=== PATIENT | female | born 1980 | race Caucasian/White ===

== ENCOUNTER 2018-07-23 05:42 | Observation (INO) | payer OTHER ==
[~2018-07-23] VITALS: Ht 165.1 cm; Wt 81.5 kg
[2018-07-23] VITALS (21 sets, daily range): BP systolic 93–126; BP diastolic 50–74; PULSE 66–96; RESP 10–20; Ht 165.1 cm; Wt 81.5 kg
--- NOTE | 2018-07-23 06:43 | PREAC ---
Date/Time of Note Date/Time of Note DATE: 07/23/18 TIME: 06:42 Anesthesia Eval and Record Evaluation Time Pre-Procedure Interview DATE: 07/23/18 TIME: 06:42 Age 38 Sex female NPO: 8 hrs Preoperative diagnosis Lumbar DDD Planned procedure L4-5, L5-S1 Microdiscectomy Past Medical History Past Medical History: None Surgery & Anesthesia Issues No known issue Meds Anticoagulation: No Beta Aayush within 24 hr: No Reason Beta Aayush not given: Pt. not on B-Aayush No Active Prescriptions or Reported Meds Meds reviewed: Yes Allergies Coded Allergies: Sulfa (Sulfonamide Antibiotics) (Verified Allergy, Unknown, 07/23/18) Allergies Reviewed: Yes Labs/Studies Labs Reviewed: Reviewed by anesthesiologist test: Negative Studies: ECG Pre-procedure Exam Last vitals Vital Signs Date Temp Pulse Resp B/P (MAP) Pulse Ox O2 O2 Flow FiO2 Time Delivery Rate 07/23/18 97.4 66 18 107/72 100 Room Air 06:28 (84) Airway: Adequate mouth opening, Adequate thyromental dist Mallampati: Mallampati II Teeth: Normal Lung: Normal Heart: Normal ASA Physical Status ASA physical status: 2 Emergency: None Planned Anesthetic General/MAC: ETT Pre-operative Attestations Prior to commencing anesthesia and surgery, the patient was re-evaluated, there was verification of: *The patient's identity *The results of appropriate recent lab work and preoperative vital signs *The above evaluation not changing prior to induction *Anesthetic plan, risk benefits, alternative and complications discussed with patient/family; questions answered; patient/family understands, accepts and wishes to proceed. SHUBHAM GALICIA Jul 23, 2018 06:43
[2018-07-23] MEDS ORDERED: BUPIVACAINE 0.5%/EPI (SDV) 30 ML INJ ONE (06:51)
[2018-07-23] MEDS ORDERED: SURGIFOAM POWDER 1 GM KIT ONE (06:51)
[2018-07-23] MEDS ORDERED: GELATIN SIZE 100 SPONGE ONE (06:51)
[2018-07-23] MEDS ORDERED: BUPIVACAINE 0.25% (MPF) 30 ML INJ ONE (06:51)
[2018-07-23] MEDS ORDERED: THROMBIN 5000 UNIT VIAL ONE (06:52)
[2018-07-23] MEDS ORDERED: POLYMYXIN/BACITRACIN 1L IRRIG ONE (06:52)
[2018-07-23] MEDS ORDERED: HEPARIN 1000 UNITS/ML 10 ML INJ ONE (06:52)
[2018-07-23] MEDS ORDERED: CA CHLORIDE 10% 10 ML SYRINGE ONE ×2 (06:54→08:27)
[2018-07-23] MEDS ORDERED: D5W-0.45 NACL + KCL 20 MEQ 1,000 ML IV SCH (06:55)
--- NOTE | 2018-07-23 06:55 | HPN ---
Date/Time of Note Date/Time of Note DATE: 07/23/18 TIME: 06:55 Interval H&P Admission Note Pt. seen H&P reviewed: No system changes TIFFANY TUCKER PA-C Jul 23, 2018 06:55
[2018-07-23] MEDS ORDERED: ACETAMINOPHEN 325 MG TAB PO PRN (07:00)
[2018-07-23] MEDS ORDERED: CARISOPRODOL 350 MG TAB PO PRN (07:00)
[2018-07-23] MEDS ORDERED: HYDROmorphONE 1 MG/5 ML IV SYRINGE IV PRN ×3 (07:00)
[2018-07-23] MEDS ORDERED: ONDANSETRON 4 MG INJ IV PRN ×3 (07:00→13:30)
[2018-07-23] MEDS ORDERED: BISACODYL 10 MG SUPP PR PRN (07:00)
[2018-07-23] MEDS ORDERED: FENTAnyl 50 MCG/ML VIAL IV PRN ×2 (07:00)
[2018-07-23] MEDS ORDERED: CEPASTAT LOZENGE MT PRN (07:00)
[2018-07-23] MEDS ORDERED: MEPERIDINE 25 MG INJ IV PRN (07:00)
[2018-07-23] MEDS ORDERED: HYDROmorphONE 0.5 MG/0.5 ML SYG IV PRN (07:00)
[2018-07-23] MEDS ORDERED: HYDROmorphONE 0.2 MG/ML PCA IV SCH (07:00)
[2018-07-23] MEDS ORDERED: ALBUTEROL 0.083% (NEB) 2.5 MG/3 ML AMP HHN PRN (07:00)
[2018-07-23] MEDS ORDERED: METOCLOPRAMIDE 10 MG INJ IV PRN (07:00)
[2018-07-23] MEDS ORDERED: AL HYDROX/MG HYDROX/SIMETH 30 ML CUP PO PRN (07:00)
[2018-07-23] MEDS ORDERED: DIPHENHYDRAMINE 25 MG CAP PO PRN (07:00)
[2018-07-23] MEDS ORDERED: DIPHENHYDRAMINE 50 MG INJ IV PRN ×2 (07:00)
[2018-07-23] MEDS ORDERED: NALOXONE (0.4 MG/ML) INJ IV PRN ×2 (07:00→14:00)
[2018-07-23] MEDS ORDERED: HYDROCODONE/APAP (10/325) TAB PO PRN ×2 (07:00)
[2018-07-23] MEDS ORDERED: FENTAnyl 50 MCG/ML VIAL ONE (07:12)
[2018-07-23] MEDS: CEFAZOLIN 1 GM/50 ML (PMX) 50 ML IVPB SCH ×3 (07:29→23:01)
[2018-07-23] MEDS ORDERED: PROPOFOL 20 ML ONE (08:27)
[2018-07-23] MEDS ORDERED: SUCCINYLCHOLINE CHLORIDE 100 MG/5 ML SYG IV ONE (08:27)
[2018-07-23] MEDS ORDERED: LIDOCAINE 100 MG SYRINGE ONE (08:27)
[2018-07-23] MEDS ORDERED: SUGAMMADEX SODIUM 200 MG/2 ML VIAL IV ONE (08:27)
[2018-07-23] MEDS ORDERED: CEFAZOLIN 1 GM INJ ONE (08:27)
[2018-07-23] MEDS ORDERED: ROCURONIUM 50 MG INJ ONE (08:27)
--- NOTE | 2018-07-23 08:55 | SIPON ---
Date/Time of Note Date/Time of Note DATE: 07/23/18 TIME: 08:54 Operative Report Preoperative Diagnosis Left lumbosacral disc herniation Postoperative Diagnosis Left lumbosacral disc herniation Operation/Procedure Performed Left lumbosacral discectomy Surgeon see signature line assistant floor covering printer Irlanda Montoya PA-C Anesthesia: general Estimated blood loss: 10 - 50 ml's Transfusion Required none Specimen L5-S1 disc Grafts/Implants none Complications none BASSAM IBRAHIM MD Jul 23, 2018 08:55
--- NOTE | 2018-07-23 08:57 | NUR ---
RECEIVED RESPONSIVE BREARTHING WELL WITH OXYGEN MASK ON, CRYING IN PAIN. MOVING BOTH LEGS/FEET WELL TO COMMANDS, GOOD PEDAL PULSES. LOWER BACK INCISION CLEAR WITH DERMABOND INTACT.
--- NOTE | 2018-07-23 09:12 | NUR ---
C/O FEELING SICK AND TENSE AFTER DILAUDID GIVEN, NO RASHES OER HIVES, NO SWELLING OF MOUTH OR THROAT. WILL DOCUMENT IN PHARMACY PATIENT HAS ADVERSE REACTION TO DILAUDID.
--- NOTE | 2018-07-23 09:13 | NUR ---
DR GALICIA MADE AWARE OF PATIENT'S COMPLAIN AFTER DILAUDID GIVEN AND BENADRYL GIVEN. WILL COME TO SEE PATIENT. BREATHING WITH EASE, NO RASHES NO SWELLING OF THROAT.
--- NOTE | 2018-07-23 09:15 | NUR ---
DR BISHOP'S OFFICE ( JACEK ) MADE AWARE OF CONSULT.
--- NOTE | 2018-07-23 09:24 | NUR ---
DR GALICIA AT BEDSIDE AND EXAMINED AND SPOKE TO PATIENT, REASSURED HER. CALM AT THIS TIME. MADE AWARE NO DILAUDID WILL BE GIVEN.
--- NOTE | 2018-07-23 09:27 | NUR ---
DR IBRAHIM MADE AWARE OF PATIENT'S REACTION TO DILAUDID, ORDERED TO DISCONTINUE GUNNER MATE DILAUDID.
--- NOTE | 2018-07-23 10:00 | NUR ---
FAMILY(GARETT) UPDATED ON STATUS AND MADE AWARE WERE STILL WAITING FOR BED ASSIGNMENT.
--- NOTE | 2018-07-23 10:40 | NUR ---
C/O OF DISCOMFORT ON LEFT HAND IV SITE, NO SWELLING OR REDNESS WITH GOOD BLOOD RETURN, CONVERTED TO HEPLOCK. NEW IV ACCESS ON LEFT AC #22 STARTED BY ABDIRAHMAN HUBBARD, PATIENT STAED IT FEELS MUCH BETTER. RECEIVING STEVIE MORENO. GARETT, PATIENT'S FAMILY INFORMED OF ROOM ASSIGNED, WILL WAIT IN THE ROOM.
--- NOTE | 2018-07-23 10:50 | NUR ---
AWAKE AND ALERT, MINIMAL PAIN, TOLERABLE. TRANSFERRED TO ROOM IN STABLE CONDITION.
--- NOTE | 2018-07-23 11:51 | PAC ---
Date/Time of Note Date/Time of Note DATE: 07/23/18 TIME: 11:51 Post-Anesthesia Notes Post-Anesthesia Note Last documented vital signs Vital Signs Date Temp Pulse Resp B/P (MAP) Pulse Ox O2 O2 Flow FiO2 Time Delivery Rate 07/23/18 78 10 119/70 100 Nasal 2.0 10:01 (86) Cannula 07/23/18 98.7 09:01 Activity: WNL Respiratory function: WNL Cardiovascular function: WNL Mental status: Baseline Pain reasonably controlled: Yes Hydration appropriate: Yes Nausea/Vomiting absent: Yes SHUBHAM GALICIA Jul 23, 2018 11:51
--- NOTE | 2018-07-23 13:03 | OPR ---
DATE OF OPERATION: 07/23/2018 PREOPERATIVE DIAGNOSIS: L5 to S1 disk extrusion with radiculopathy. POSTOPERATIVE DIAGNOSIS: L5 to S1 disk extrusion with radiculopathy. OPERATION PERFORMED: 1. Left L5 to S1 hemilaminotomy, partial medial facetectomy, foraminotomy. 2. Left L5 to S1 lumbar microdiskectomy. 3. Use of operative microscope. 4. Lateral localizing film x2. 5. Intraoperative neuromonitoring. PRIMARY SURGEON: Jorge Luis Borrego MD FLIGHT ENGINEER INSPECTOR: Irlanda Montoya PA-C NEED FOR MEDICAL SALES ASSOCIATE: During this spinal surgical procedure, my respiratory assistant was used to retract and protect the spinal nerves and dural sac. My respiratory assistant also employed the suction catheters to ev acuate blood from the surgical field to improve visualization of the neural structures. The assistan t was medically necessary to facilitate the completion of the surgery in a safe and expeditious [facility] r. [facility] regulations, as well as hospital bylaws, preclude the use of non-licensed [facility] care personnel, such as operating room technicians, to perform these functions. FINDINGS: Neuromonitoring at the start of the case revealed left L5 amplitude down 30%, left S1 down 40%. At the end of the case, nerve signals returned to normal. The patient had 2 large extruded fr agments at the L5-S1 level causing significant nerve root compromise. ESTIMATED BLOOD LOSS: 20 mL. DRAINS: None. SPECIMENS: L5 to S1 disk. COMPLICATIONS OF PROCEDURES: None. ANESTHESIOLOGIST: Asael Robbins MD TYPE OF ANESTHESIA: General. INDICATIONS FOR PROCEDURE: This is a 38-year-old female with lumbar radiculopathy that had large ext ruded fragment at L5 to S1 causing S1 nerve root compression. She failed nonoperative measures; ther efore, I recommended that she undergo the above procedure. Preoperatively, we discussed risks, benef its, alternatives. She understood and wished to proceed. DESCRIPTION OF PROCEDURE IN DETAIL: The patient was identified in the preoperative holding area, giv en Ancef antibiotic, taken to the operating room, where she was successfully placed under general ane sthesia. Her motor intraoperative neuromonitoring was performed by Dr. Leach from 6:40 until 8:4 5 to include SSEP, MEP and EMG performed by Rivono. The patient was placed in the operativ e table in prone position over a Lennox frame. All bony prominences are well padded. The back was t hen prepped and draped in usual sterile fashion. Spinal needles were placed and lateral localizing f ilm obtained to confirm the correct levels. Once this was confirmed, I injected the skin, subcutaneo us tissue with Marcaine and epinephrine. Incision was then made over the L5 to S1 level. Incision w as taken down to dorsal fascia, which was incised with Bovie cautery. I then subperiosteally dissect ed the left L5 lamina. Xi retractor was placed. Kerrison was placed under the L5 lamina and rep eat lateral films obtained to confirm the correct levels. Once this was confirmed, microscope was br ought in and left-sided hemilaminotomy, partial medial facetectomy and foraminotomy were then perform ed. Ligamentum flavum was then sharply dissected. I then identified the S1 nerve root which I retra cted medially. My respiratory assistant protected this and I encountered a large extruded fragment superior to t he disk space, which I was able to remove in 1 large fragment. I then examined the area and there we re no longer any superiorly extruded fragments. I then looked at the level of the disk space and the re was another extruded fragment there which I was able to remove. This was done without making any annulotomy. I then identified the hole in the annulus and I placed a small pituitary through there t o see if there are any loose fragments. Once this was done, I irrigated the wound and the disk space . A Valsalva maneuver was performed and there was no leak of CSF. All nerve signals returned to nor mal. Hemostasis was achieved. PPP and thrombin were injected over the dura for hemostatic purposes. Nerve signals were normal. I then proceeded to close the wound in layers after removing the retrac tors and I closed the fascia with #1 Vicryl stitch. I then injected plain Marcaine. I closed subcut aneous tissue with a 2-0 Vicryl stitch. A 4-0 Monocryl closure was then performed. Dermabond was th en applied. The patient was awakened from anesthesia and taken to the recovery room in stable condit ion. Lap, sponge and instrument counts were correct x2. There were no apparent complications during the procedure. The patient will be admitted to the [facility] for routine postoperative care to include pain co ntrol, neurovascular checks, antibiotics and physical therapy. Dictated By: JORGE LUIS BORREGO MD BB/NTS Conf#: [id number] DID#: [id number] CC: ZHANG BISHOP MD;*EndCC*
[2018-07-23] MEDS: OXYCODONE/ACETAMINOPHEN (5/325) TAB PO PRN ×3 (14:24→23:01)
--- NOTE | 2018-07-23 14:45 | NUR ---
PT Evaluation Therapy day number 1 Evaluation Start Time 15:45 Evaluation End Time 16:45 Evaluation Total Time 60 min Subjective Current complaint of pain Pain Scale NUMERIC Pain Intensity 5 (0-10) Patient Stated Goal for Pain Relief 0 (0-10) Pain Level Comment pain in back and L glute/LLE Supine to Sit Supervised Transfer Sit to Stand Ability Supervised Bed Mobility Sit to Supine Supervised Bed Transfer Ability Supervised Chair Transfer Ability Supervised Toileting Ability Supervised Additional Mobility Comments with and without AD Gait Assist Levels Supervised Assistive Devices Front Wheel Walker Ambulation Distance 100 feet Additional Gait Comments 20' with no AD supervised Static Sitting Balance Good Dynamic Sitting Balance Good Standing Static Balance Fair plus Dynamic Standing Balance Fair plus Safety Judgement Fair Activity Tolerance Fair Additional Equipment Present LS corset Post Treatment Pain Intensity 5 0-10 Total Minutes 60 Total Units 4 PT Technical Record Comment 38 yo female s/p lumbar microdiscectomy left L5-S1 secondary to disk extrusion with radiculopathy on 07/23/18. PMHx: None Precautions: LS Corset PRN PLOF: Pt reports living in a 1 story home with and two young children, family will be available to assist initially. Prior to 2.5 months ago, pt was I with all activities. Since 2.5 months ago, pt has been limited community ambulator, Ariadna with no AD, with pain sitting, bending, unable to dress herself or to work. S: Pt was found sitting in bed, anxious, and asking for assistance to use the restroom. RN had informed PT and cleared pt for activity. O: PT evaluation complete, pt assisted back to bed with bed alarm on, call light nearby, all needs met. Pt donned/doffed LS corset Ariadna and requested to continue wearing it in bed for improved comfort. Pt was visibly anxious at start of evaluation, performed log roll with supervision and stated that "her L leg felt like it was going to buckle." CGA with sit-stand and ambulated with FWW to the restroom. Pt was visibly more calm after bathroom use and a standing marching break with the FWW, pt states that she is more comfortable standing than sititng. Ambulated 100' supervised with FWW, then 20' supervised with no AD. No LOB, reciprocal steps, requires VCs for upright posture. Pt c/o numbness in LLE distal to ankle. Strength 4-/5 in LLE vs 4/5 on RLE. Pt points to L glute as source of pain in the piriformis region, offloads L side when sitting. Prioprioception and light touch screen intact RLE, mildly impaired LLE. Reviewed spinal precautions with pt. RN informed of pt progress, RN and pt informed that pt is safe to walk in her room supervised by staff with no AD. A: Pt is limited by pain in her back and LLE, impaired sensation in LLE, and anxiety that reduces pt tolerance for activity. When calm, pt requires supervision only, but requires more assistance when highly anxious. Pt would benefit from continued skilled inpatient to improve tolerance for activity and to reduce pain. P: QID until goals met. Defer discharge disposition to DME to be assessed as pt progresses. Pt would benefit from HHPT/OPPT when medically cleared by .
--- NOTE | 2018-07-23 16:16 | CONS ---
DATE OF ADMISSION: 07/23/2018 DATE OF CONSULTATION: 07/23/2018 TYPE OF CONSULTATION: Medical. Thank you, Dr. Borrego, for asking me to participate in medical management of this patient. REASON FOR CONSULTATION: Generalized anxiety disorder and history of panic attacks. HISTORY OF PRESENT ILLNESS: This 38-year-old female is now postop a lumbosacral spine surgery. The patient was injured at work and developed low back pain with radiation down the back of both legs, mo re on the left than the right. She failed medical management and underwent surgery today by Dr. Linda pérez. She had a left L5-S1 hemilaminectomy and partial medial facetectomy and foraminotomy, and a l eft L5-S1 lumbar microdiskectomy. The patient is awake and alert at this time. She does complain of some nausea after taking a [place]. She says that she has had trouble with Vicodin in the past causin g nausea and did not realize that the [place] was a similar medication. She does have some incisional back pain. She denies any chest pain or shortness of breath. She denies any history of hypertension , heart disease, diabetes mellitus. She is not on any chronic medications. PAST MEDICAL HISTORY: Remarkable for: 1. Anxiety disorder which is situational and associated with work. 2. History of panic attacks. PAST SURGICAL HISTORY: Urethral surgery at age 4, wisdom tooth extraction. FAMILY HISTORY: Father has diabetes. Mother is alive and well without medical problems. SOCIAL HISTORY: She is single. She does not smoke, does not drink alcohol. MEDICATIONS: Tramadol preoperatively as needed for pain. ALLERGIES: SHE IS ALLERGIC TO SULFA ANTIBIOTICS. PHYSICAL EXAMINATION: GENERAL: At this time reveals a well-developed female in no apparent distress. VITAL SIGNS: Temperature 97.4, pulse is 66, respirations 18, blood pressure 107/72, O2 saturation 10 0% on room air. HEENT: Head normocephalic. Eyes: Extraocular muscles intact. NOSE AND MOUTH: Normal. NECK: Supple. No neck vein distention. LUNGS: Clear to auscultation. HEART: Regular rhythm. No murmurs, gallops or rubs. ABDOMEN: Soft, nontender. EXTREMITIES: No peripheral edema. IMPRESSION: The patient is now postop a lumbosacral spine surgery for back pain and radiculopathy. She is having some nausea after taking a [place] for pain. I am going to switch her to Percocet to see if that is more tolerable. She has no other medical problems other than a history of an anxiety dis order related to work. She takes no chronic medication. I will manage her medical problems. PLAN: 1. Change hydrocodone to oxycodone. 2. Postop lumbosacral spine surgery protocol. 3. Check labs in the morning. 4. I will follow the patient along with you medically. Dictated By: DOMINGO CARROLL MD ND/NTS Conf#: [id number] DID#: [id number] CC: BASSAM BORREGO MD;*[facility]*
--- NOTE | 2018-07-23 19:56 | NUR ---
EOSS A and O x 4. Had some nausea without emesis, minimal po intake, Zofran and hoda zaynab given. Had pain, norco caused nausea and patient had negative reaction to dilaudid in PACU, so she was started on percocet 5/325mg which she reports is effective for her pain management. Patient wearing brace when out of bed, calls for assistance. Cleared by PT to walk in room without walker. Ancef administered as ordered. Hourly rounding performed, bed kept in low, locked position.
[2018-07-23] MEDS: DOCUSATE SODIUM 100 MG CAP PO SCH (20:46)
[2018-07-24] MEDS: OXYCODONE/ACETAMINOPHEN (5/325) TAB PO PRN ×3 (03:47→12:38)
[2018-07-24] MEDS ORDERED: PANTOPRAZOLE 40 MG INJ IV SCH (06:00)
[2018-07-24 07:26] VITALS: BP 111/54; PULSE 73; RESP 18
--- NOTE | 2018-07-24 07:50 | NUR ---
PT NOTE Therapy day number 2 Subjective Current complaint of pain Pain Scale NUMERIC Pain Intensity 5 (0-10) Patient Stated Goal for Pain Relief 0 (0-10) Pain Level Comment LLE radiating pain, pt reports decreased numbness since yesterday Exercise Assessment Label Bilat Lower Extremity Exercise Type Active ROM Additional Exercise Comments good return demo log rolling Transfer Training Start Time 07:50 Supine to Sit Independent Transfer Sit to Stand Ability Independent Bed Mobility Sit to Supine Independent Bed Transfer Ability Independent Chair Transfer Ability Independent Toileting Ability Independent Sitting Tolerance 1 min Additional Mobility Comments indep transfers and bed mob, good return demo sock don/doff w/ OT tools Transfer Training End Time 08:15 Total Transfer Training Time 25 min (8-127) Gait Training Start Time 08:15 Gait Assist Levels Independent Assistive Devices None Ambulation Distance 350 feet Additional Gait Comments no LOB with head turning/hand gestures, reciprocal, steady, incr post sway Gait Training End Time 08:28 Total Gait Training Treatment Time 13 min (8-127) Static Sitting Balance Good Dynamic Sitting Balance Good Standing Static Balance Good Dynamic Standing Balance Good Safety Judgement Good Activity Tolerance Good Additional Equipment Present LS corset donned independently Post Treatment Pain Intensity 7 0-10 Variance Documentation RN informed pt ready for next dose pain med Total Treament Time 38 min (8-127) Total Minutes 38 Total Units 3 PT Technical Record Comment PT NOTE S: Pt reports didn't sleep due to pain last night, decreased numbness in LLE since yesterday, c/o increased pain with bed ob/transfers/sitting, agreeable to PT. Cleared for PT per STEVIE Santana O: Pt received standing at sink performing oral hygeniene with no AD,no apparent distress. Performed transfer tr, bed mobility, and gait tr with no AD independent, pt with no LOB with talking/gesturing/head turning during gait. Provided sock aide, dynamite shooter and long handle sponge; pt able to doff/don sock mod I. Pt c/o increased LLE pain and spasms with transfers, decreased pain with standing. Pt left standing in room in no apparent distress. RN informed of pt request for pain med and updated re pt status. A: Pt ruiz tx well, will benefit from 3in1 commode for home use. P: will discuss possible DC from PT with supervising therapist due to PT goals met Addendum: 07/24/18 at 0911 by TRI MCNEILL PT Discussed POC with MACHINE BINDER STRIPPER, plan to discharge patient as all goals met. Patient may ambulate with nursing. Co-signed by Tri Mcneill PT, DPT
[2018-07-24] MEDS: DOCUSATE SODIUM 100 MG CAP PO SCH (08:53)
--- NOTE | 2018-07-24 08:57 | CONS ---
Assessment/Plan Assessment/Plan Hospital Course 1. Yessenia is now 1 day postop a lumbar sacral spine surgery. She is having some incisional back pain which has been relieved with Percocet. 2. She will continue physical therapy as tolerated. She could be discharged when cleared by Orth O and physical therapy. Result Diagram: 07/24/18 0426 07/24/18 0426 Results 24hrs Laboratory Tests Test 07/24/18 04:26 07/24/18 07:02 White Blood Count 8.4 Red Blood Count 3.98 L Hemoglobin 12.0 Hematocrit 36.4 L Mean Corpuscular Volume 91.5 Mean Corpuscular Hemoglobin 30.2 Mean Corpuscular Hemoglobin Concent 33.0 Red Cell Distribution Width 12.6 Platelet Count 328 Mean Platelet Volume 9.4 Immature Granulocytes % 0.400 Neutrophils % 51.9 Lymphocytes % 33.1 Monocytes % 9.2 Eosinophils % 4.6 Basophils % 0.8 Nucleated Red Blood Cells % 0.0 Immature Granulocytes # 0.030 Neutrophils # 4.4 Lymphocytes # 2.8 Monocytes # 0.8 Eosinophils # 0.4 Basophils # 0.1 Nucleated Red Blood Cells # 0.0 Sodium Level 143 Potassium Level 4.4 Chloride Level 102 Carbon Dioxide Level 30 Anion Gap 11 Blood Urea Nitrogen 5 L Creatinine 0.66 Est Glomerular Filtrat Rate mL/min > 60 Glucose Level 105 Calcium Level 8.8 Magnesium Level 1.9 Lab Scanned Report REFERENCE LAB Consultation Date/Type/Reason Admit Date/Time Jul 23, 2018 at 10:47 Initial Consult Date 24 HR Interval Summary Free Text/Dictation Yessenia is 1 day postop a lumbar sacral spine surgery. Yessenia is still having some incisional back pain; however, the Percocet is helping relieve the pain and she is able to tolerate it better than [place]. Constitutional: no complaints, improved Exam/Review of Systems Vital Signs Vitals Vital Signs Date Temp Pulse Resp B/P (MAP) Pulse Ox O2 O2 Flow FiO2 Time Delivery Rate 07/24/18 99.5 73 18 111/54 98 Room Air 07:26 (73) 07/23/18 2.0 10:01 Intake and Output 07/23/18 07/23/18 07/24/18 1515:00 23:00 07:00 IntakeIntake Total 1400 ml 1850 ml 350 ml OutputOutput Total 20 ml BalanceBalance 1380 ml 1850 ml 350 ml Exam Constitutional: alert, oriented Respiratory: clear to auscultation, normal air movement Cardiovascular: regular rate and rhythm Gastrointestinal: soft, non-tender Musculoskeletal: nl extremities to inspection Medications Medications Current Medications Docusate Sodium (Colace) 100 mg BID PO Last administered on 07/24/18at 08:53; Ad min Dose 100 MG; Start 07/23/18 at 21:00 Pantoprazole (Protonix Iv) 40 mg DAILY@06 IV Last administered on 07/24/18at 05:46; Admin Dose 40 MG; Start 07/24/18 at 06:00 Oxycodone/ Acetaminophen (Percocet (5/ 325)) 1 tab Q4H PRN PO MODERATE PAIN LEVEL 4-6 Last administered on 07/24/18at 08:53; Admin Dose 1 TAB; Start 07/23/18 at 13:30 Ondansetron HCl (Zofran Inj) 4 mg Q6H PRN IV NAUSEA AND/OR VOMITING Last administered on 07/23/18at 14:17; Admin Dose 4 MG; Start 07/23/18 at 13:30 Naloxone HCl (Narcan) 0.2 mg Q2M PRN IV DECREASED REPIRATORY RATE; Start 07/23/18 at 14:00 Date/Time of Note Date/Time of Note DATE: 07/24/18 TIME: 08:55 DOMINGO CARROLL MD Jul 24, 2018 08:57
--- NOTE | 2018-07-24 09:59 | NUR ---
Called Dr. Borrego's office to report medicines ordered yesterday were d/c when patient's status was changed from same day surgery to observation. Dr. Ruiz entered orders for some, but this morning patient is asking for muscle spasm medication. One of the medications d/c when patient status changed was for muscle spasms. Additionally, patient is reporting numbness in her left foot and "running" pain from left hip to calf. Denies intermittent claudication pain, has been wearing SCDs. Pulses equal in bilateral feet, both feet cool.
--- NOTE | 2018-07-24 11:12 | NUR ---
ANEUDY NOTES: PT IS A 38 YRS OLD FEMALE WITH ADMITTING DX OF LEFT L5-S1 HNP WITH DISC. MET WITH THE PT AT THE BEDSIDE. PRIOR TO THE ADMISSION, PT LIVED WITH HER IN [place]. PT HAD NO PREVIOUS DME. PT AGREED WITH FWW AND BSC. 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 S/W WITH [facility] AND FAXED ALL ORDER TO HER. AWAITING FOR A DECISION. WILL REMAIN AVAILABLE. STACI CADENA CM [id number] Addendum: 07/24/18 at 1116 by STACI NEGRON CM Amended: Links added.
--- NOTE | 2018-07-24 11:40 | NUR ---
called Dr. Borrego, reported patient complaint of left foot numbness that is new onset. Informed of d/c of medication when patient status changed from same day surgery to observation. He will see patient in 20 minutes and evaluate.
[2018-07-24 12:30] VITALS: BP 113/68; PULSE 74
--- NOTE | 2018-07-24 12:55 | DS ---
Date/Time of Note Date/Time of Note DATE: 07/24/18 TIME: 12:54 Discharge Summary Admission/Discharge Info Admit Date/Time Jul 23, 2018 at 10:47 Discharge Date/Time July 24 Patient Condition: Good Procedures Lumbar discectomy Hospital Course [facility] after undergoing the above procedure. By July 24 the patient was deemed stable for discharge with follow-up arranged with the undersigned Home Meds No Active Prescriptions or Reported Meds Primary Care Provider Not On Staff Doctor Pending Labs Laboratory Tests Test 07/24/18 04:26 07/24/18 07:02 White Blood Count 8.4 10^3/ul (4.8-10.8) Red Blood Count 3.98 10^6/ul (4.20-5.40) Hemoglobin 12.0 g/dl (12.0-16.0) Hematocrit 36.4 % (37.0-47.0) Mean Corpuscular Volume 91.5 fl (82.0-101.0) Mean Corpuscular Hemoglobin 30.2 pg (29.0-33.0) Mean Corpuscular 33.0 g/dl (32.0-37.0) Hemoglobin Concent Red Cell Distribution Width 12.6 % (11.5-14.5) Platelet Count 328 10^3/UL (140-415) Mean Platelet Volume 9.4 fl (7.4-10.4) Immature Granulocytes % 0.400 % (0.001-0.429) Neutrophils % 51.9 % (39.0-77.0) Lymphocytes % 33.1 % (15.0-51.0) Monocytes % 9.2 % (0.0-11.0) Eosinophils % 4.6 % (0.0-7.0) Basophils % 0.8 % (0.0-2.0) Nucleated Red Blood Cells % 0.0 /100WBC (0.0-0.0) Immature Granulocytes # 0.030 10^3/ul (0.0-0.031) Neutrophils # 4.4 10^3/ul (1.6-7.5) Lymphocytes # 2.8 10^3/ul (0.8-2.9) Monocytes # 0.8 10^3/ul (0.3-0.9) Eosinophils # 0.4 10^3/ul (0.0-0.5) Basophils # 0.1 10^3/ul (0.0-0.1) Nucleated Red Blood Cells # 0.0 10^3/ul (0.0-0.0) Sodium Level 143 mmol/L (135-144) Potassium Level 4.4 mmol/L (3.5-5.1) Chloride Level 102 mmol/L (97-110) Carbon Dioxide Level 30 mmol/L (21-31) Anion Gap 11 (5-13) Blood Urea Nitrogen 5 mg/dl (7-20) Creatinine 0.66 mg/dl (0.44-1.00) Est Glomerular Filtrat > 60 mL/min (>60) Rate mL/min Glucose Level 105 mg/dl (70-220) Calcium Level 8.8 mg/dl (8.4-10.2) Magnesium Level 1.9 mg/dl (1.7-2.5) Lab Scanned Report [facility] [id number] BASSAM IBRAHIM MD Jul 24, 2018 12:55
[2018-07-24 13:00] VITALS: BP 111/72; PULSE 78
[2018-07-24] MEDS ORDERED: CYCLOBENZAPRINE 10 MG TAB PO ONE (13:00)
[2018-07-24 14:20] VITALS: BP 110/62; RESP 18
--- NOTE | 2018-07-24 16:29 | NUR ---
DISCHARGE NOTE Reviewed discharge packet with patient and spouse, all questions answered. Patient's spouse able to fill Dr. Borrego's Percocet script, and patient feels she can manage her pain at home with Percocet. Denies nausea. IV access d/c and dry dressing applied. Patient collected belongings collected and sent with patient. Patient has follow up already scheduled with Dr. Borrego and will call his office with any questions or concerns. Patient aware of signs and symptoms of infection and spinal precautions. Patient escorted out of hospital by MARIV[facility].
== END 2018-07-24 16:30 | disposition home or self-care (01) ==
LOC: SDS 05:42 → MS1 10:27 → SDS 10:46 → REC 10:47 → MS1 11:08
PROVIDERS: ADMIT Specialist; ATTEND Specialist
DX: M51.17 Intervertebral disc disorders with radiculopathy, lumbosacral region (principal)
CPT/HCPCS: 63030; 72020; 80048; 83735; 85025; 86999; 88304; 97116; 97162; 97530; C9113; G0378; J0690; J1170; J1200; J1644; J2001; J2175; J2405; J3010; J3480